=== PATIENT | female | born 1990 | race Caucasian/White ===

== ENCOUNTER 2018-03-30 17:04 | Inpatient (IN) | payer BC ==
[2018-03-30] MEDS ORDERED: Water For Irrigation,Sterile 1,000 ML Container IRR PRN (17:32)
[2018-03-30] MEDS ORDERED: Terbutaline 1 MG/ML SDV SUBCUT PRN (17:32)
[2018-03-30] MEDS ORDERED: Carboprost Tromethamine 250 MCG/1 ML Amp IM PRN (17:32)
[2018-03-30] MEDS ORDERED: Methylergonovine 0.2 MG/1 ML Amp IM PRN (17:32)
[2018-03-30] MEDS ORDERED: Sodium Chloride 0.9% 10 ML Syringe FLUSH PRN (17:32)
[2018-03-30] MEDS ORDERED: Misoprostol 200 MCG Tab PO PRN (17:32)
[2018-03-30] MEDS ORDERED: Lidocaine 1% 50 ML MDV INJECT PRN (17:32)
[2018-03-30] MEDS ORDERED: Tranexamic Acid 1,000 MG in Sodium Chloride 0.9% 100 ML IV PRN (17:32)
[2018-03-30] MEDS ORDERED: Butorphanol 1 MG/ML SDV IVPUSH PRN (17:32)
[2018-03-30] MEDS ORDERED: Sodium Chloride 0.9% 2.5 ML Syringe FLUSH PRN (17:32)
[2018-03-30] MEDS ORDERED: Misoprostol 25 MCG (1/4 of 100 MCG) Tab VAG ONE (17:35)
[2018-03-30] MEDS ORDERED: Oxytocin/0.9 % Sodium Chloride 30 UNIT/500 ML BAG IV SCH ×2 (17:45)
[2018-03-30] MEDS ORDERED: Misoprostol 25 MCG (1/4 of 100 MCG) Tab VAG SCH (22:00)
[2018-03-31] MEDS: Nalbuphine 10 MG/1 ML Vial IVPUSH PRN ×3 (01:22→05:43)
[2018-03-31] MEDS: Lactated Ringers 1,000 ML IV SCH ×3 (03:06→08:49)
[2018-03-31] MEDS ORDERED: Ropivacaine HCl/PF 100 ML ONE (06:05)
[2018-03-31] MEDS ORDERED: fentaNYL 100 MCG/2 ML SDV ONE (06:05)
[2018-03-31] MEDS ORDERED: Lidocaine HCl/EPINEPHrine 5 ML IJ ONE (06:11)
--- NOTE | 2018-03-31 06:35 | PCM.PREANE ---
Preanesthetic Assessment - Procedure Proposed Procedure: Labor Epidural - Anesthesia/Transfusion/Family Hx Anesthesia History: Prior Anesthesia Without Reaction Family History of Anesthesia Reaction: No Intubation History: Unknown - Review of Systems General: No Symptoms Pulmonary: No Symptoms Cardiovascular: No Symptoms Gastrointestinal: No Symptoms Neurological: No Symptoms Other: Reports: Anxiety (related to pain with labor) - Physical Assessment NPO Status Date: 03/31/18 NPO Status Time: 00:00 (sips/chips) Pulse: 73 O2 Sat by Pulse Oximetry: 100 Blood Pressure: 138/92 Height: 5 ft 3 in Weight: 165 lb ASA Class: 1 Mental Status: Alert & Oriented x3 Airway Class: Mallampati = 2 Dentition: Reports: Normal Dentition Thyro-Mental Finger Breadths: 3 Mouth Opening Finger Breadths: 3 ROM/Head Extension: Full Lungs: Clear to Auscultation, Normal Respiratory Effort Cardiovascular: Regular Rate, Regular Rhythm - Lab Values: Laboratory Last Values WBC 11.55 K/uL (4.0-11.0) H 03/30/18 17:45 RBC 4.63 M/uL (4.30-5.90) 03/30/18 17:45 Hgb 12.9 g/dL (12.0-16.0) 03/30/18 17:45 Hct 38.5 % (36.0-46.0) 03/30/18 17:45 MCV 83.2 fL (80.0-98.0) 03/30/18 17:45 MCH 27.9 pg (27.0-32.0) 03/30/18 17:45 MCHC 33.5 g/dL (31.0-37.0) 03/30/18 17:45 RDW Std Deviation 43.0 fl (28.0-62.0) 03/30/18 17:45 RDW Coeff of [place] 14 % (11.0-15.0) 03/30/18 17:45 Plt Count 238 K/uL (150-400) 03/30/18 17:45 MPV 9.50 fL (7.40-12.00) 03/30/18 17:45 Nucleated RBC % 0.0 /100WBC 03/30/18 17:45 Nucleated RBCs # 0 K/uL 03/30/18 17:45 Blood Type O POSITIVE 03/30/18 17:45 Antibody Screen NEGATIVE 03/30/18 17:45 - Allergies Allergies/Adverse Reactions: Allergies Allergy/AdvReac Type Severity Reaction Status Date / Time Sulfa (Sulfonamide Allergy Other Verified 03/30/18 17:31 Antibiotics) - Blood Blood Available: No Product(s) Available: None - Anesthesia Plan Free Text/Narrative:: Labor Epidural - Acknowledgements Anesthesia Type Planned: Epidural Pt an Appropriate Candidate for the Planned Anesthesia: Yes Alternatives and Risks of Anesthesia Discussed w Pt/Guardian: Yes Pt/Guardian Understands and Agrees with Anesthesia Plan: Yes PreAnesthesia Questionnaire HEENT History: Reports: Other (See Below) Other HEENT History: wears glasses Gastrointestinal History: Reports: Other (See Below) 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 [No Known Home Meds] 03/30/18 [History] - CURRENT (IN HOUSE) MEDS Current Meds: Current Medications Butorphanol Tartrate (Stadol) 1 mg IVPUSH Q1H PRN PRN Reason: Pain Carboprost Tromethamine (Hemabate Ds) 250 mcg IM ASDIRECTED PRN PRN Reason: Post Hemorrhage Lactated Ringer's (Ringers, Lactated) 1,000 mls @ 150 mls/hr IV ASDIRECTED LUIS Last Admin: 03/31/18 06:23 Dose: 999 mls/hr Oxytocin/Sodium Chloride (Oxytocin 30 Unit/500 Ml-Ns) 30 unit in 500 mls @ 500 mls/hr IV TITRATE LUIS Oxytocin/Sodium Chloride (Oxytocin 30 Unit/500 Ml-Ns) 30 unit in 500 mls @ 2 mls/hr IV TITRATE LUIS; Protocol Last Admin: 03/31/18 03:06 Dose: 2 munits/min, 2 mls/hr Tranexamic Acid 1,000 mg/ (Sodium Chloride) 110 mls @ 660 mls/hr IV ONETIME PRN PRN Reason: Bleeding Lidocaine HCl (Xylocaine 1%) 50 ml INJECT ONETIME PRN PRN Reason: Laceration repair Methylergonovine Maleate (Methergine) 0.2 mg IM ASDIRECTED PRN PRN Reason: Post Hemorrhage Misoprostol (Cytotec) 200 mcg PO ONETIME PRN PRN Reason: Post Hemorrhage Misoprostol (Cytotec) 25 mcg VAG Q4H LUIS Sodium Chloride (Saline Flush) 10 ml FLUSH ASDIRECTED PRN PRN Reason: Keep Vein Open Sodium Chloride (Saline Flush) 2.5 ml FLUSH ASDIRECTED PRN PRN Reason: Keep Vein Open Sterile Water (Sterile Water For Irrigation) 1,000 ml IRR ASDIRECTED PRN PRN Reason: delivery Terbutaline Sulfate (Brethine) 0.25 mg SUBCUT ASDIRECTED PRN PRN Reason: Tacysystole Discontinued Medications Fentanyl (Sublimaze) Confirm Administered Dose 100 mcg .ROUTE .STK-MED ONE Stop: 03/31/18 06:06 Ropivacaine (Naropin 0.2%) Confirm Administered Dose 100 mls @ as directed .ROUTE .STK-MED ONE Stop: 03/31/18 06:06 Lidocaine/Epinephrine (Lidocaine 1.5%-Epi 1:200,000) Confirm Administered Dose 5 ml IJ .STK-MED ONE Stop: 03/31/18 06:12 Misoprostol (Cytotec) 25 mcg VAG ONETIME ONE Stop: 03/30/18 17:36 Last Admin: 03/30/18 18:19 Dose: 25 mcg Nalbuphine HCl (Nubain) 10 mg IVPUSH Q1H PRN PRN Reason: Pain (severe 7-10) Last Admin: 03/31/18 05:43 Dose: 10 mg
[2018-03-31] MEDS ORDERED: Sodium Chloride 0.65% Nasal Spray 45 ML Bottle NAS PRN (11:46)
[2018-03-31] MEDS ORDERED: Ropivacaine 0.2% 2 MG/ML 20 ML SDV ONE (15:44)
--- NOTE | 2018-03-31 18:37 | PCM.OPNOTE ---
- General Post-Op/Procedure Note Date of Surgery/Procedure: 03/31/18 Operative Procedure(s): /1st labial laceration, repaired Findings: Viable female APGARs 8, 9 weight 3130 gm. Spontaneous delivery intact placenta with 3V cord Pre Op Diagnosis: 41 week IUP. Oligohydramios, IOL Post-Op Diagnosis: Same Anesthesia Technique: Epidural Primary Surgeon: Anushka Verduzco EBL in mLs: 300 Complications: none known Condition: Good Free Text/Narrative:: Dictation [id number]
[2018-03-31] MEDS ORDERED: Bisacodyl 10 MG Supp RECTAL PRN (18:47)
[2018-03-31] MEDS ORDERED: Acetaminophen 500 MG Tab PO PRN ×2 (18:47)
[2018-03-31] MEDS ORDERED: Witch Hazel Medicated Pads 40/Jar TOP PRN (18:47)
[2018-03-31] MEDS ORDERED: Benzocaine/Menthol 20%-0.5% Spray 78 GM Cannister TOP PRN (18:47)
[2018-03-31] MEDS ORDERED: Ibuprofen 400 MG Tab PO PRN (18:47)
[2018-03-31] MEDS ORDERED: Aluminum Hydroxide/Magnesium Hydroxide/Simethicone Susp 30 ML Cup PO PRN (18:47)
[2018-03-31] MEDS ORDERED: Lanolin 100% Cream 7 GM Tube TOP PRN (18:47)
[2018-03-31] MEDS ORDERED: Docusate Sodium 100 MG Cap PO PRN (18:47)
[2018-03-31] MEDS ORDERED: oxyCODONE 5 MG Tab PO PRN (18:47)
--- NOTE | 2018-03-31 19:45 | OR ---
SURGEON: Anushka Verduzco M.D. DATE OF PROCEDURE: 03/31/2018 PREOPERATIVE DIAGNOSES: 1. 41 weeks' intrauterine . 2. Oligohydramnios. 3. Induction of labor. POSTOPERATIVE DIAGNOSES: 1. 41 weeks' intrauterine . 2. Oligohydramnios. 3. Induction of labor. PROCEDURES: Spontaneous vaginal delivery, first-degree labial laceration repaired. ANESTHESIA: Epidural. ESTIMATED BLOOD LOSS: 300 mL. COMPLICATIONS: None. FINDINGS: Viable female, scores of 8 at 1 minute and 9 at 5 minutes, weight of 3130 g. Spontaneous delivery, intact placenta, 3-vessel cord. DISPOSITION: to nursery, mom in LDRP. PROCEDURE IN DETAIL: Shirley is a 28-year-old G1, P0, at 41 weeks' gestation who presents for induction of labor due to finding of oligohydramnios on biophysical profile done today for past due . On admission, she was fingertip thick, -3. heart tones were 130s variability. She underwent Cytotec ripening and responded nicely to this, but the following morning, she was found to be 4 to 5 cm, 80% effaced, and -2 station, feeling increasingly uncomfortable, therefore underwent regional anesthesia for epidural, became more comfortable. Shortly after 8:00 a.m., underwent amniotomy, clear fluid was returned. She was found to be 5 cm, 80% effaced, -2 station. Continued to progress throughout the morning and early afternoon hours with occasional variable deceleration that responded to positional changes and oxygen supplementation. Shortly around 5:00 p.m., she was found to be complete 100%, +1 station, began pushing efforts and pushed readily. With pushing efforts, she was able to push to a +3 station, was called for delivery. Upon arrival, the patient was placed in modified dorsal lithotomy position, was prepped and draped in usual aseptic manner. Continued pushing efforts, pushed, and was able to deliver 's head atraumatically, spontaneously, followed by remainder of the body without difficulty. Infant had been handed off to her mother, attending nurse staff side. After oropharynx and nares were bulb suctioned, cord was clamped x2 and cut, Delivery of intact placenta, 3- vessel cord spontaneously then occurred. Vigorous fundal uterine massage was then applied while 30 units of Pitocin was delivered in 500 mL of IV fluid. Upon inspection of cervix, vaginal sidewalls, and perineum, there was found to be intact perineum, intact cervix with bilateral first-degree labial lacerations, repaired using 3-0 Vicryl in continuous running fashion. Hemostasis appeared evident. Uterus remained firm. Sponge count was correct. The patient remained in LDRP, in nursery. VALERY / REUBEN /[id number] MTDD
[2018-03-31] MEDS: Ibuprofen 800 MG Tab PO PRN (20:13)
[2018-04-01] MEDS: Ibuprofen 800 MG Tab PO PRN ×2 (08:11→14:32)
--- NOTE | 2018-04-01 08:38 | PCM48HPAN ---
Post Anesthesia Note - EVALUATION WITHIN 48HRS OF ANESTHETIC Vital Signs in Normal Range: Yes Patient Participated in Evaluation: Yes Respiratory Function Stable: Yes Airway Patent: Yes Cardiovascular Function Stable: Yes Hydration Status Stable: Yes Pain Control Satisfactory: Yes Nausea and Vomiting Control Satisfactory: Yes Mental Status Recovered: Yes Pulse Rate: 73 Resp Rate: 16 Blood Pressure: 138/92
--- NOTE | 2018-04-01 10:14 | PCM.PNPP ---
- General Info Date of Service: 04/01/18 Functional Status: Reports: Pain Controlled - Review of Systems General: Reports: No Symptoms Pulmonary: Reports: No Symptoms Cardiovascular: Reports: No Symptoms Gastrointestinal: Reports: No Symptoms Genitourinary: Reports: No Symptoms Musculoskeletal: Reports: No Symptoms Neurological: Reports: No Symptoms - General Info Date of Service: 04/01/18 - Patient Data Vital Signs - Most Recent: Last Vital Signs Temp 36.8 C 04/01/18 09:00 Pulse 72 04/01/18 09:00 Resp 18 04/01/18 09:00 BP 126/64 04/01/18 09:00 Pulse Ox 99 04/01/18 09:00 Weight - Most Recent: 74.843 kg I&O - Last 24 Hours: Intake & Output 03/31/18 04/01/18 04/01/18 22:59 06:59 14:59 Output Total 575 Balance -575 Lab Results - Last 24 Hours: Laboratory Results - last 24 hr 03/31/18 04/01/18 Range/Units 18:07 07:28 Hgb 11.4 L (12.0-16.0) g/dL Hct 34.4 L (36.0-46.0) % Cord ABG pH 7.151 L (7.18-7.38) Cord ABG Base Excess -10 (-10--2) Cord VBG pH 7.250 (7.25-7.45) Cord VBG Base Excess -10 (-10--2) Med Orders - Current: Current Medications Acetaminophen (Tylenol Extra Strength) 500 mg PO Q4H PRN PRN Reason: Pain Acetaminophen (Tylenol Extra Strength) 1,000 mg PO Q4H PRN PRN Reason: Pain Last Admin: 03/31/18 20:14 Dose: 1,000 mg Al Hydroxide/Mg Hydroxide (Mag-Al Plus) 30 ml PO Q8H PRN PRN Reason: Heartburn Benzocaine/Menthol (Dermoplast Pain Relief 20%-0.5% [place]) 78 gm TOP ASDIRECTED PRN PRN Reason: Perineal Comfort Measure Last Admin: 04/01/18 08:11 Dose: 1 canister Bisacodyl (Dulcolax) 10 mg RECTAL ONETIME PRN PRN Reason: Constipation Carboprost Tromethamine (Hemabate Ds) 250 mcg IM ASDIRECTED PRN PRN Reason: Post Hemorrhage Docusate Sodium (Colace) 100 mg PO BID PRN PRN Reason: Constipation Emollient Ointment (Lansinoh Hpa) 0 gm TOP ASDIRECTED PRN PRN Reason: Sore Nipples Last Admin: 04/01/18 08:09 Dose: 1 applic Lactated Ringer's (Ringers, Lactated) 1,000 mls @ 150 mls/hr IV ASDIRECTED LUIS Last Admin: 03/31/18 08:49 Dose: 150 mls/hr Oxytocin/Sodium Chloride (Oxytocin 30 Unit/500 Ml-Ns) 30 unit in 500 mls @ 500 mls/hr IV TITRATE LUIS Oxytocin/Sodium Chloride (Oxytocin 30 Unit/500 Ml-Ns) 30 unit in 500 mls @ 2 mls/hr IV TITRATE LUIS; Protocol Last Titration: 03/31/18 18:08 Dose: 999 mls/hr Tranexamic Acid 1,000 mg/ (Sodium Chloride) 110 mls @ 660 mls/hr IV ONETIME PRN PRN Reason: Bleeding Ibuprofen (Motrin) 400 mg PO Q4H PRN PRN Reason: Pain Ibuprofen (Motrin) 800 mg PO Q6H PRN PRN Reason: Pain Last Admin: 04/01/18 08:11 Dose: 800 mg Methylergonovine Maleate (Methergine) 0.2 mg IM ASDIRECTED PRN PRN Reason: Post Hemorrhage Oxycodone HCl (Oxycodone) 5 mg PO Q2H PRN PRN Reason: Pain Sodium Chloride (Saline Flush) 10 ml FLUSH ASDIRECTED PRN PRN Reason: Keep Vein Open Sodium Chloride (Saline Flush) 2.5 ml FLUSH ASDIRECTED PRN PRN Reason: Keep Vein Open Sodium Chloride (Ola Nasal [place]) 1 ml EDWINA Q2H PRN PRN Reason: Congestion Last Admin: 03/31/18 12:03 Dose: 2 spray Sterile Water (Sterile Water For Irrigation) 1,000 ml IRR ASDIRECTED PRN PRN Reason: delivery Last Admin: 03/31/18 18:35 Dose: 1,000 ml Witch Jolene (Tucks) 1 pad TOP ASDIRECTED PRN PRN Reason: comfort care Last Admin: 04/01/18 08:10 Dose: 1 tub Discontinued Medications Butorphanol Tartrate (Stadol) 1 mg IVPUSH Q1H PRN PRN Reason: Pain Fentanyl (Sublimaze) Confirm Administered Dose 100 mcg .ROUTE .[employer]-MED ONE Stop: 03/31/18 06:06 Last Admin: 03/31/18 08:16 Dose: Not Given Ropivacaine (Naropin 0.2%) Confirm Administered Dose 100 mls @ as directed .ROUTE .[employer]-MED ONE Stop: 03/31/18 06:06 Last Admin: 03/31/18 08:16 Dose: Not Given Fentanyl/Bupivacaine HCl (Ibyptwax-Gyxrx-Cy 2 Mcg/Ml-0.125%) Confirm Administered Dose 100 mls @ as directed .ROUTE .[employer] ONE Stop: 03/31/18 15:17 Last Admin: 03/31/18 19:14 Dose: Not Given Lidocaine HCl (Xylocaine 1%) 50 ml INJECT ONETIME PRN PRN Reason: Laceration repair Lidocaine/Epinephrine (Lidocaine 1.5%-Epi 1:200,000) Confirm Administered Dose 5 ml IJ .[employer]-MED ONE Stop: 03/31/18 06:12 Last Admin: 03/31/18 08:16 Dose: Not Given Misoprostol (Cytotec) 200 mcg PO ONETIME PRN PRN Reason: Post Hemorrhage Misoprostol (Cytotec) 25 mcg VAG ONETIME ONE Stop: 03/30/18 17:36 Last Admin: 03/30/18 18:19 Dose: 25 mcg Misoprostol (Cytotec) 25 mcg VAG Q4H LUIS Nalbuphine HCl (Nubain) 10 mg IVPUSH Q1H PRN PRN Reason: Pain (severe 7-10) Last Admin: 03/31/18 05:43 Dose: 10 mg Ropivacaine (Naropin 0.2%) Confirm Administered Dose 20 ml .ROUTE .[employer] ONE Stop: 03/31/18 15:45 Last Admin: 03/31/18 19:14 Dose: Not Given Terbutaline Sulfate (Brethine) 0.25 mg SUBCUT ASDIRECTED PRN PRN Reason: Tacysystole - Infant Interaction Support Person: , Mother - Recovery Exam Fundal Tone: Firm Fundal Level: 1 Fingerbreadths Below Umbilicus Fundal Placement: Midline Lochia Amount: Scant Lochia Color: Rubra/Red Perineum Description: Edematous Episiotomy/Laceration: Approximated Bladder Status: Nonpalpable, Voiding Urinary Elimination: Voided - Exam General: Alert, Oriented Lungs: Normal Respiratory Effort Cardiovascular: Regular Rate, Regular Rhythm GI/Abdominal Exam: Soft, Non-Tender Extremities: Pedal Edema (trace). No: Derick's Sign Skin: Warm, Dry, Intact Psy/Mental Status: Alert, Normal Affect, Normal Mood - Problem List & Annotations (1) Vaginal delivery SNOMED Code(s): 291807270 Code(s): O80 - ENCOUNTER FOR FULL-TERM UNCOMPLICATED DELIVERY Status: Acute Current Visit: Yes - Problem List Review Problem List Initiated/Reviewed/Updated: Yes - My Orders Last 24 Hours: My Active Orders 03/31/18 11:46 Sodium Chloride 0.65% [Ola Nasal [place]] 1 ml EDWINA Q2H PRN 03/31/18 18:47 Patient Status [ADT] Routine May Shower [RC] ASDIRECTED Up ad Ashley [RC] ASDIRECTED Vital Signs [RC] PER UNIT ROUTINE Acetaminophen [Tylenol Extra Strength] 1,000 mg PO Q4H PRN Acetaminophen [Tylenol Extra Strength] 500 mg PO Q4H PRN Alum Hydrox/Mag Hydrox/Simeth [Mag-Al Plus] 30 ml PO Q8H PRN Benzocaine/Menthol [Dermoplast Pain Relief 20%-0.5% [place]] 78 gm TOP ASDIRECTED PRN Bisacodyl [Dulcolax] 10 mg RECTAL ONETIME PRN Docusate Sodium [Colace] 100 mg PO BID PRN Ibuprofen [Motrin] 400 mg PO Q4H PRN Ibuprofen [Motrin] 800 mg PO Q6H PRN Lanolin [Lansinoh HPA] See Dose Instructions TOP ASDIRECTED PRN Witch Jolene [Tucks] 1 pad TOP ASDIRECTED PRN oxyCODONE 5 mg PO Q2H PRN Assess Lochia [WOMSER] Per Unit Routine Assess Uterine Involution [WOMSER] Per Unit Routine Ice Therapy [OM.PC] Per Unit Routine Perineal Care [OM.PC] Per Unit Routine Peripheral IV Discontinue [OM.PC] Routine Sitz Bath [OM.PC] Per Unit Routine 03/31/18 Dinner Regular Diet [DIET] - Assessment Assessment:: PPD 1 status post - Plan Plan:: Continue cares, work with today.
--- NOTE | 2018-04-02 10:00 | PCM.PNPP ---
- General Info Date of Service: 04/02/18 Functional Status: Reports: Pain Controlled, Tolerating Diet, Ambulating, Urinating - Review of Systems General: Reports: Fatigue. Denies: Fever, Weakness Pulmonary: Denies: Shortness of Breath Cardiovascular: Denies: Chest Pain, Palpitations, Lightheadedness Gastrointestinal: Reports: Flatus. Denies: Abdominal Pain, Nausea, Vomiting Genitourinary: Denies: Flank Pain Skin: Reports: No Symptoms Neurological: Reports: No Symptoms - General Info Date of Service: 04/02/18 - Patient Data Vital Signs - Most Recent: Last Vital Signs Temp 36.3 C 04/02/18 08:00 Pulse 79 04/02/18 08:00 Resp 18 04/02/18 08:00 BP 123/74 04/02/18 08:00 Pulse Ox 100 04/02/18 08:00 Weight - Most Recent: 74.843 kg Med Orders - Current: Current Medications Acetaminophen (Tylenol Extra Strength) 500 mg PO Q4H PRN PRN Reason: Pain Acetaminophen (Tylenol Extra Strength) 1,000 mg PO Q4H PRN PRN Reason: Pain Last Admin: 03/31/18 20:14 Dose: 1,000 mg Al Hydroxide/Mg Hydroxide (Mag-Al Plus) 30 ml PO Q8H PRN PRN Reason: Heartburn Benzocaine/Menthol (Dermoplast Pain Relief 20%-0.5% [place]) 78 gm TOP ASDIRECTED PRN PRN Reason: Perineal Comfort Measure Last Admin: 04/01/18 08:11 Dose: 1 canister Bisacodyl (Dulcolax) 10 mg RECTAL ONETIME PRN PRN Reason: Constipation Carboprost Tromethamine (Hemabate Ds) 250 mcg IM ASDIRECTED PRN PRN Reason: Post Hemorrhage Docusate Sodium (Colace) 100 mg PO BID PRN PRN Reason: Constipation Emollient Ointment (Lansinoh Hpa) 0 gm TOP ASDIRECTED PRN PRN Reason: Sore Nipples Last Admin: 04/01/18 08:09 Dose: 1 applic Lactated Ringer's (Ringers, Lactated) 1,000 mls @ 150 mls/hr IV ASDIRECTED LUIS Last Admin: 03/31/18 08:49 Dose: 150 mls/hr Oxytocin/Sodium Chloride (Oxytocin 30 Unit/500 Ml-Ns) 30 unit in 500 mls @ 500 mls/hr IV TITRATE LUIS Oxytocin/Sodium Chloride (Oxytocin 30 Unit/500 Ml-Ns) 30 unit in 500 mls @ 2 mls/hr IV TITRATE LUIS; Protocol Last Titration: 03/31/18 18:08 Dose: 999 mls/hr Tranexamic Acid 1,000 mg/ (Sodium Chloride) 110 mls @ 660 mls/hr IV ONETIME PRN PRN Reason: Bleeding Ibuprofen (Motrin) 400 mg PO Q4H PRN PRN Reason: Pain Ibuprofen (Motrin) 800 mg PO Q6H PRN PRN Reason: Pain Last Admin: 04/01/18 14:32 Dose: 800 mg Methylergonovine Maleate (Methergine) 0.2 mg IM ASDIRECTED PRN PRN Reason: Post Hemorrhage Oxycodone HCl (Oxycodone) 5 mg PO Q2H PRN PRN Reason: Pain Sodium Chloride (Saline Flush) 10 ml FLUSH ASDIRECTED PRN PRN Reason: Keep Vein Open Sodium Chloride (Saline Flush) 2.5 ml FLUSH ASDIRECTED PRN PRN Reason: Keep Vein Open Sodium Chloride (Gray Nasal [place]) 1 ml EDWINA Q2H PRN PRN Reason: Congestion Last Admin: 03/31/18 12:03 Dose: 2 spray Sterile Water (Sterile Water For Irrigation) 1,000 ml IRR ASDIRECTED PRN PRN Reason: delivery Last Admin: 03/31/18 18:35 Dose: 1,000 ml Witch Jolene (Tucks) 1 pad TOP ASDIRECTED PRN PRN Reason: comfort care Last Admin: 04/01/18 08:10 Dose: 1 tub Discontinued Medications Butorphanol Tartrate (Stadol) 1 mg IVPUSH Q1H PRN PRN Reason: Pain Fentanyl (Sublimaze) Confirm Administered Dose 100 mcg .ROUTE .STK-MED ONE Stop: 03/31/18 06:06 Last Admin: 03/31/18 08:16 Dose: Not Given Ropivacaine (Naropin 0.2%) Confirm Administered Dose 100 mls @ as directed .ROUTE .STK-MED ONE Stop: 03/31/18 06:06 Last Admin: 03/31/18 08:16 Dose: Not Given Fentanyl/Bupivacaine HCl (Trmtcodg-Kiifz-Td 2 Mcg/Ml-0.125%) Confirm Administered Dose 100 mls @ as directed .ROUTE .STK-MED ONE Stop: 03/31/18 15:17 Last Admin: 03/31/18 19:14 Dose: Not Given Lidocaine HCl (Xylocaine 1%) 50 ml INJECT ONETIME PRN PRN Reason: Laceration repair Lidocaine/Epinephrine (Lidocaine 1.5%-Epi 1:200,000) Confirm Administered Dose 5 ml IJ .STK-MED ONE Stop: 03/31/18 06:12 Last Admin: 03/31/18 08:16 Dose: Not Given Misoprostol (Cytotec) 200 mcg PO ONETIME PRN PRN Reason: Post Hemorrhage Misoprostol (Cytotec) 25 mcg VAG ONETIME ONE Stop: 03/30/18 17:36 Last Admin: 03/30/18 18:19 Dose: 25 mcg Misoprostol (Cytotec) 25 mcg VAG Q4H LUIS Nalbuphine HCl (Nubain) 10 mg IVPUSH Q1H PRN PRN Reason: Pain (severe 7-10) Last Admin: 03/31/18 05:43 Dose: 10 mg Ropivacaine (Naropin 0.2%) Confirm Administered Dose 20 ml .ROUTE .STK-MED ONE Stop: 03/31/18 15:45 Last Admin: 03/31/18 19:14 Dose: Not Given Terbutaline Sulfate (Brethine) 0.25 mg SUBCUT ASDIRECTED PRN PRN Reason: Tacysystole - Interaction Support Person: , Mother - Recovery Exam Fundal Tone: Firm Fundal Level: 2 Fingerbreadths Below Umbilicus Fundal Placement: Midline Lochia Amount: Scant Lochia Color: Rubra/Red Perineum Description: Edematous Episiotomy/Laceration: Approximated Bladder Status: Nonpalpable, Voiding Urinary Elimination: Voided - Exam General: Alert, Oriented Lungs: Normal Respiratory Effort Cardiovascular: Regular Rate, Regular Rhythm GI/Abdominal Exam: Soft, Non-Tender Extremities: Pedal Edema (trace). No: Derick's Sign Skin: Warm, Dry, Intact Neurological: No New Focal Deficit - Problem List & Annotations (1) Vaginal delivery SNOMED Code(s): 167797899 Code(s): O80 - ENCOUNTER FOR FULL-TERM UNCOMPLICATED DELIVERY Status: Acute Current Visit: Yes - Problem List Review Problem List Initiated/Reviewed/Updated: Yes - My Orders Last 24 Hours: My Active Orders 04/02/18 09:58 Ready for Discharge [RC] PER UNIT ROUTINE - Assessment Assessment:: PPD 2 status post - Plan Plan:: is going better, feeling well overall. Would like to go home today. Discharge instructions reviewed. Follow up at [facility] 6 weeks. Infection and bleeding warnings reviewed. Discharge to home.
== END 2018-04-02 13:30 | disposition home or self-care (01) | DRG 560 ==
LOC: MW.OBCHECK 17:04 → MW.OB 17:04 → MW.OBCHECK 17:32 → MW.OB 17:32 → OBSVTOIN 03-31 18:07 → MW.OB 03-31 20:42
PROVIDERS: ADMIT Obstetrics & Gynecology; ATTEND Obstetrics & Gynecology
PROC: 0UQMXZZ Repair Vulva, External Approach (ICD-10-PCS; principal; 2018-03-31)
PROC: 3E0P7VZ Introduction of Hormone into Female Reproductive, Via Natural or Artificial Opening (ICD-10-PCS; principal; 2018-03-31)
PROC: 10E0XZZ Delivery of Products of Conception, External Approach (ICD-10-PCS; principal; 2018-03-31)
PROC: 10907ZC Drainage of Amniotic Fluid, Therapeutic from Products of Conception, Via Natural or Artificial Opening (ICD-10-PCS; principal; 2018-03-31)
PROC: 00HU33Z Insertion of Infusion Device into Spinal Canal, Percutaneous Approach (ICD-10-PCS; 2018-03-31)
PROC: 3E0R3BZ Introduction of Anesthetic Agent into Spinal Canal, Percutaneous Approach (ICD-10-PCS; 2018-03-31)
DX: O48.0 Post-term pregnancy (principal); O41.03X0 Oligohydramnios, third trimester, not applicable or unspecified; Z37.0 Single live birth; Z88.2 Allergy status to sulfonamides; O70.0 First degree perineal laceration during delivery; Z3A.41 41 weeks gestation of pregnancy
CPT/HCPCS: 01967; 36415; 51702; 59025; 59409; 82803; 85014; 85018; 85027; 86850; 86900; 86901; A9270-GY; J2300; J2590; J2795; J3010; J7120